=== PATIENT | male | born 1955 | race Caucasian/White ===

== ENCOUNTER 2019-05-25 08:46 | Emergency (ER) | payer BC, SELFPAY ==
--- NOTE | ~2019-05-25 | XR_ITS ---
EXAMINATION: XR finger 1st LT min 2V DATE: 05/25/2019 09:20 INDICATION: Left thumb interphalangeal joint infection. TECHNIQUE: 3 views of left thumb were obtained. COMPARISON: None. FINDINGS: Bone alignment is normal. No fracture. There is mild osteoarthritis of first carpometacarpa l joint. IMPRESSION: 1. No evidence of osteomyelitis. Reviewed, dictated and finalized at location A. MER MACHINE
[2019-05-25 09:05] VITALS: BP 145/72; PULSE 52; RESP 19; TEMP 36.4; O2SAT 100
--- NOTE | 2019-05-25 09:07 | ED.GENADULT ---
HPI - General Adult General Chief complaint: Wound/Laceration <ANAND Chou Last Filed: 05/25/19 11:17> Stated complaint: L THUMB INFECTION <ANAND Chou Last Filed: 05/25/19 11:17> Time Seen by Provider: 05/25/19 08:56 <ANAND Chou Last Filed: 05/25/19 11:17> Source: patient and family <ANAND Chou Last Filed: 05/25/19 11:17> Mode of arrival: ambulatory <ANAND Chou Last Filed: 05/25/19 11:17> Limitations: no limitations <ANAND Chou Last Filed: 05/25/19 11:17> History of Present Illness HPI narrative: Patient is a 64-year-old male who presents to emergency department noting infection of the left patient also started with a small pimple over the IP joint dorsal surface left thumb which has progressively worsened patient has had the infected area for 8 days now patient has been on clindamycin for 5 days with no improvement now has increased swelling with streaking up the arm. Patient notes moderate aching pain worse with activity and movement. Patient notes that he has difficulty with performing range of motion. <ANAND Chou Last Filed: 05/25/19 11:17> Related Data Home medications: Home Medications Medication Instructions Recorded Confirmed alirocumab 75 mg/mL subcutaneous 75 mg SUB-Q ONCE 03/23/19 03/23/19 pen injector amlodipine 10 mg tablet 10 mg PO DAILY 03/23/19 03/23/19 aspirin 81 mg tablet,delayed 81 mg PO DAILY 03/23/19 03/23/19 release carvedilol 25 mg tablet 25 mg PO Q12H 03/23/19 03/23/19 clopidogrel 75 mg tablet 75 mg PO DAILY 03/23/19 03/23/19 fenofibrate 160 mg tablet 160 mg PO DAILY 03/23/19 03/23/19 folic acid 1 mg tablet 1 mg PO DAILY 03/23/19 03/23/19 lansoprazole 30 mg capsule,delayed 30 mg PO DAILY 03/23/19 03/23/19 release nitroglycerin 0.4 mg sublingual 0.4 mg SUBLINGUAL Q5M PRN 03/23/19 03/23/19 tablet tamsulosin 0.4 mg capsule 0.4 mg PO DAILY 03/23/19 03/23/19 triamcinolone acetonide 0.5 % 1 applic TOPICAL BID 03/23/19 03/23/19 topical cream <Andres Gleason PA-C - Last Filed: 05/25/19 11:17> Allergies/adverse reactions: Allergies Allergy/AdvReac Type Severity Reaction Status Date / Time Penicillins Allergy Unknown Difficulty Verified 05/25/19 09:26 breathing <Andres Gleason PA-C - Last Filed: 05/25/19 11:17> Review of Systems Review of Systems: Narrative: SKIN: Positive for redness swelling and tenderness of the left thumb with streaking up the arm <Andres Gleason PA-C - Last Filed: 05/25/19 11:17> All systems reviewed & are unremarkable except as noted in HPI and below <Andres Gleason PA-C - Last Filed: 05/25/19 11:17> PMFSH Past Medical History Medical History: Medical History (Updated 05/25/19 @ 11:16 by Andres Gleason PA-C) Cellulitis of left hand Diabetes mellitus <Andres Gleason PA-C - Last Filed: 05/25/19 11:17> Family History Family History: Family History (Updated 08/19/18 @ 16:13 by DOCTOR UNKNOWN) Father Patient's father is , Onset Age: 77 Mother Acute myocardial infarction, Onset Age: 56 <Andres Gleason PA-C - Last Filed: 05/25/19 11:17> Social History Social History: Social History Smoking status: Never smoker Alcohol intake: never Gender identity (if verbalized by the patient): Male <Andres Gleason PA-C - Last Filed: 05/25/19 11:17> Exam Narrative: Exam Narrative: GENERAL: Well-appearing, well-nourished, and in no acute distress. HEAD: Normocephalic, atraumatic. EYES: PERRLA and EOMI. ENT: Nares clear, no rhinorrhea or epistaxis. Mucous membranes moist. CHEST: Clear to auscultation. No respiratory distress. No wheezes rales or rhonchi HEART: Regular rate and rhythm. No murmur heard. Normal peripheral pulses. EXTREMITIES: Red tender swollen area over
[2019-05-25 09:36] LABS: Basophils Percent Auto 0.5 % (0.2-1.2); Eosinophils Absolute Auto 0.1 K/mm3 (0-0.3); Eosinophils Percent Auto 3.5 % (0-4.4); Hematocrit 37.4 % (42.0-52.0); Hemoglobin 12.6 g/dL (14.0-18.0); Immature Granulocyte Absolute 0.02 K/mm3 (0.00-0.031); Immature Granulocyte Percent A 0.5 % (0-0.5); Lymphocytes Percent Auto 25.3 % (18.3-44.2); Mean Corpuscular HGB Conc 33.7 g/dl (32-36); Mean Corpuscular Hemoglobin 30.2 pg (26-34); Mean Corpuscular Volume 89.7 fl (80-100); Mean Platelet Volume 10.1 fl (7.4-10.4); Monocytes Absolute Auto 0.3 K/mm3 (0.1-0.6); Monocytes Percent Auto 7.6 % (2.6-8.5); Neutrophils Absolute Auto 2.5 K/mm3 (1.3-6.7); Neutrophils Percent Auto 62.6 % (45.5-73.1); Platelet Count Result 206 k/mm3 (150-375); Red Blood Count 4.17 M/mm3 (4.6-6.20)
[2019-05-25] MEDS: SODIUM CHLORIDE 0.9% IV 1,000 ML 999 ML IV CONT (09:39)
[2019-05-25 09:48] LABS: Blood Urea Nitrogen 19 mg/dL (9-20); Calcium 9.4 mg/dL (8.4-10.2); Carbon Dioxide 24 mmol/L (22-30); Chloride 103 mmol/L (98-107); Estimated Glomerular Filt Rate 47; Glucose 123 mg/dL (75-110); Potassium 4.2 mmol/L (3.4-5.0); Sodium 138 mmol/L (137-145)
[2019-05-25 10:21] LABS: CRP < 0.5 mg/dL (<1.0)
[2019-05-25 12:25] LABS: Erythrocyte Sedimentation Rate 23 mm/hr (0-20)
--- NOTE | 2019-05-31 14:06 | PC.NURSE ---
LATE ENTRY This note is being entered to document information to the patient's record. The following information was omitted on [05/25/2019], by [Wu Christian].NS stop time is 1040, Vancomycin stop time is 1035
== END 2019-05-25 11:36 | disposition home or self-care (01) ==
PROVIDERS: Emergency Medicine Emergency Medical Services; Emergency Provider Emergency Medicine; PCP Family Medicine
DX: L02.512 Cutaneous abscess of left hand (principal); E11.9 Type 2 diabetes mellitus without complications; Z79.82 Long term (current) use of aspirin
CPT/HCPCS: 26010; 36415; 73140; 80048; 85025; 85652; 86140; 87070; 87075; 87147; 87186; 87205; 96365; 96368; 99284; J0131; J3370; J7030

== ENCOUNTER 2020-11-20 18:42 | Observation (INO) | payer BC, SELFPAY ==
[2020-11-20] VITALS (29 sets, daily range): BP systolic 128–156; BP diastolic 69–92; PULSE 73–96; RESP 13–21; TEMP 36.4–37.1; O2SAT 95–98; BMI 33.5
--- NOTE | ~2020-11-20 | XR_ITS ---
EXAMINATION: XR chest 2V DATE: 11/20/2020 19:07 INDICATION: Midsternal chest pain. Shortness of breath. TECHNIQUE: Frontal and lateral views of the chest were obtained. COMPARISON: None. FINDINGS: The chest demonstrates clear lungs without pneumonia, pleural effusion, or pneumothorax. Th e heart size is normal. IMPRESSION: 1. No acute cardiopulmonary disease. Reviewed, dictated and finalized at location A.
--- NOTE | 2020-11-20 18:43 | ECG_ITS ---
Measurements Intervals [place] Rate: 87 P: MA: 0 QRS: -63 QRSD: 114 T: 38 QT: 348 QTc: 419 Interpretive Statements ATRIAL FIBRILLATION INCOMPLETE RIGHT BUNDLE BRANCH BLOCK LEFT ANTERIOR FASCICULAR BLOCK BASELINE ARTIFACT- I, II ABNORMAL ECG Electronically Signed On 11-20-2020 21:09:02 CDT by Pako Sanchez D.O.
[2020-11-20 19:04] LABS: Basophils Percent Auto 0.3 % (0.2-1.2); Eosinophils Absolute Auto 0.1 K/mm3 (0-0.3); Eosinophils Percent Auto 1.6 % (0-4.4); Hematocrit 38.2 % (42.0-52.0); Hemoglobin 12.5 g/dL (14.0-18.0); Immature Granulocyte Absolute 0.02 K/mm3 (0.00-0.031); Immature Granulocyte Percent A 0.3 % (0-0.5); Lymphocytes Absolute Auto 1.28 K/mm3 (0.9-3.2); Lymphocytes Percent Auto 17.3 % (18.3-44.2); Mean Corpuscular HGB Conc 32.7 g/dl (32-36); Mean Corpuscular Hemoglobin 28.7 pg (26-34); Mean Corpuscular Volume 87.8 fl (80-100); Monocytes Absolute Auto 0.5 K/mm3 (0.1-0.6); Monocytes Percent Auto 6.2 % (2.6-8.5); Neutrophils Absolute Auto 5.5 K/mm3 (1.3-6.7); Neutrophils Percent Auto 74.3 % (45.5-73.1); Platelet Count Result 254 k/mm3 (150-375); Red Blood Count 4.35 M/mm3 (4.6-6.20); Red Cell Distribution Width 13.2 % (11.5-14.5); White Blood Count 7.4 K/mm3 (4.5-10.0)
[2020-11-20 19:13] LABS: Prothrombin Time 13.3 Seconds (11.1-14.7)
[2020-11-20 19:14] LABS: Partial Thromboplastin Time 24.5 SECONDS (22.3-36.8)
[2020-11-20 19:15] LABS: Anion Gap 11 mmol/L (8-16); Blood Urea Nitrogen 33 mg/dL (9-20); Calcium 9.8 mg/dL (8.4-10.2); Carbon Dioxide 22 mmol/L (22-30); Chloride 107 mmol/L (98-107); Estimated Glomerular Filt Rate 30; Glucose 115 mg/dL (65-110); Potassium 4.2 mmol/L (3.4-5.0); Sodium 140 mmol/L (137-145)
[2020-11-20 19:26] LABS: Troponin I < 0.012 ng/mL (0.000-0.034)
[2020-11-20 21:59] LABS: Troponin I < 0.012 ng/mL (0.000-0.034)
--- NOTE | 2020-11-20 22:20 | ED.CHESTPAIN ---
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 Patient reported having occasional similar symptoms in the past few months. Currently patient is asymptomatic. History of hypertension, hyperlipidemia, hypothyroidism, anemia, coronary stents. Patient does not smoke or drink or uses drugs. Related Data Home Medications Medication Instructions Recorded Confirmed amlodipine 10 mg tablet 10 mg PO DAILY 03/23/19 11/16/20 aspirin 81 mg tablet,delayed 81 mg PO DAILY 03/23/19 11/16/20 release clopidogrel 75 mg tablet 75 mg PO DAILY 03/23/19 11/16/20 nitroglycerin 0.4 mg sublingual 0.4 mg SUBLINGUAL Q5M PRN 03/23/19 11/16/20 tablet triamcinolone acetonide 0.5 % 1 applic TOPICAL BID 03/23/19 11/16/20 topical cream alirocumab 75 mg/mL subcutaneous 75 mg SUB-Q . every 2 weeks ml 03/20/20 11/16/20 pen injector ferrous sulfate 325 mg (65 mg 325 mg PO DAILY 11/16/20 11/16/20 iron) tablet Allergies Allergy/AdvReac Type Severity Reaction Status Date / Time Penicillins Allergy Unknown Difficulty Verified 11/20/20 20:17 breathing Review of Systems Review of Systems: CONSTITUTIONAL: Denies fever, chills, or sweats. EYES: Denies visual changes, redness, or discharge. ENT: Denies rhinorrhea, congestion, sore throat, or otalgia. CARDIOVASCULAR: Denies chest pain, palpitations, or edema. RESPIRATORY: Denies cough or dyspnea. GASTROINTESTINAL: Denies abdominal pain, nausea, vomiting, or diarrhea. GENITOURINARY: Denies dysuria or hematuria. SKIN: Denies rash or itching. MUSCULOSKELETAL: Denies back pain, joint pain, or myalgia. NEUROLOGIC: Denies headache, numbness, or weakness. PSYCHIATRIC: Denies anxiety or depression. [facility] Past Medical History Medical History Acute sinusitis, unspecified BMI 34.0-34.9,adult BMI 36.0-36.9,adult Cellulitis Cellulitis of left hand Chronic kidney disease (CKD) stage G3b/A1, moderately decreased glomerular filtration rate (GFR) between 30-44 mL/min/1.73 square meter and albuminuria creatinine ratio less than 30 mg/g Chronic low back pain with left-sided sciatica Diabetes mellitus Encounter for prostate cancer screening Hypothyroidism, unspecified (10/25/20) elevated TSH at 5.68 on 10/25/2020 Male erectile dysfunction, unspecified Family History Family History Father Patient's father is , Onset Age: 77 Mother Acute myocardial infarction, Onset Age: 56 Social History Social History Smoking status: Never smoker Alcohol intake: never Gender identity (if verbalized by the patient): Male Exam Narrative: General appearance: Well-developed, well-nourished Skin: Normal color Head: Normocephalic, nontraumatic Eyes: Clear conjunctiva ENT: Oropharynx normal, ears normal, nose normal Neck: Supple, nontender Chest and respiratory: Airway patent, no respiratory distress, no accessory muscle use Heart: Regular irregularity Abdomen: Soft, nontender, no organomegaly, quiet bowel sounds Vascular: Normal peripheral pulses, normal capillary refill. Musculoskeletal: Normal range of motion, nontender back Neurologic: Alert and oriented ?3, LINOLEUM LAYER is normal as tested, no gross motor deficit
[2020-11-20] MEDS: ENOXAPARIN 100 MG/ML SYRINGE SUB-Q (23:07)
[2020-11-20] MEDS: ASPIRIN 81 MG CHEWABLE TABLET 324 MG PO (23:07)
--- NOTE | 2020-11-20 23:29 | ADMGEN ---
This patient, Jules Julien, was admitted to IMU Room 210-01 at 2329. Patient/family oriented to hospital policies and general routines including ID bracelet, bed and alarms, visiting hours, pain management, procedures, bathroom and other care routines, personal items, smoking policy, room service/diet, and visiting hours. Information on how to activate the Rapid Response Team has been discussed. Patient/Family are encouraged to report perceived risks to care and to ask questions if they do not understand what they are told or what they should do.
--- NOTE | 2020-11-20 23:42 | PM.IMHP ---
H&P: HPI History of Present Illness Date/Time: 11/20/20 23:42 Chief Complaint: chest pain and shortness of breath Narrative: Patient 65 years old white male who woke up early this morning with chest pain and shortness of breath around 4:00 a.m. it lasted for about 1 hour With spontaneous resolution. The patient also was feeling water-like feeling in the ear, try to call his family physician who advised him to go to the emergency room. Patient reported having occasional similar symptoms in the past few months. he presents to the ER as he was advised by his primary care to get evaluated in the ER. He is currently not exhibiting any of those symptoms. In the ER evaluation is noted to have atrial fibrillation which is a new diagnosis along with mild [place] I on chronic kidney disease with creatinine bumped up to 2.2 from baseline level of 1.5-1.7. He follows up regularly with his kidney doctor Dr. Bee. He has a history of hypertension, hyperlipidemia, hypothyroidism, anemia and coronary artery disease status post stents placed periods back. He was recently started on thyroid medication due to elevated TSH at 5.68 on 10/25/2020. Review of Systems Review of Systems: - CONSTITUTIONAL: Denies weight loss, fever and chills. - HEENT: Denies changes in vision and hearing - RESPIRATORY: Reports SOB and denies cough. - CV: Denies palpitations and reports CP. - GI: Denies abdominal pain, nausea, vomiting and diarrhea. - : Denies dysuria and urinary frequency. - MSK: Denies myalgia and joint pain. - SKIN: Denies rash and pruritus. - NEUROLOGICAL: Denies headache and syncope. - PSYCHIATRIC: Denies recent changes in mood. Denies anxiety and depression. All systems reviewed & are unremarkable except as noted in HPI and below PMFSH Past Medical History Medical History Acute sinusitis, unspecified BMI 34.0-34.9,adult BMI 36.0-36.9,adult Cellulitis Cellulitis of left hand Chronic kidney disease (CKD) stage G3b/A1, moderately decreased glomerular filtration rate (GFR) between 30-44 mL/min/1.73 square meter and albuminuria creatinine ratio less than 30 mg/g Chronic low back pain with left-sided sciatica Diabetes mellitus Encounter for prostate cancer screening Hypothyroidism, unspecified (10/25/20) elevated TSH at 5.68 on 10/25/2020 Male erectile dysfunction, unspecified Family History Family History Father Patient's father is , Onset Age: 77 Mother Acute myocardial infarction, Onset Age: 56 Social History Social History Smoking status: Never smoker Alcohol intake: never Substance use: never Gender identity (if verbalized by the patient): Male Spiritual care concerns: No Meds Home Medications and Allergies Home Medications Medication Instructions Recorded Confirmed Type amlodipine 10 mg tablet 10 mg PO DAILY 03/23/19 11/16/20 History aspirin 81 mg tablet,delayed 81 mg PO DAILY 03/23/19 11/16/20 History release nitroglycerin 0.4 mg sublingual 0.4 mg SUBLINGUAL Q5M PRN 03/23/19 11/16/20 History tablet folic acid 1 mg tablet 1 mg PO DAILY #90 tablet 12/01/19 11/16/20 Rx fenofibrate 160 mg tablet 160 mg PO DAILY #90 tablet 02/04/20 11/16/20 Rx tamsulosin 0.4 mg capsule 0.4 mg PO DAILY #90 cap 02/04/20 11/16/20 Rx alirocumab 75 mg/mL subcutaneous 75 mg SUB-Q . every 2 weeks ml 03/20/20 11/16/20 History pen injector lansoprazole 30 mg capsule,delayed 30 mg PO DAILY #90 cap 03/20/20 11/16/20 Rx release carvedilol 25 mg tablet 25 mg PO Q12H #360 tablet 03/31/20 11/16/20 Rx ferrous sulfate 325 mg (65 mg 325 mg PO DAILY 11/16/20 11/16/20 History iron) tablet levothyroxine 75 mcg tablet 75 mcg PO DAILY #30 tablet 11/16/20 11/16/20 Rx sildenafil 100 mg tablet 100 mg PO DAILY PRN #90 tablet 11/16/20 11/16/20 R
[2020-11-21] VITALS (9 sets, daily range): BP systolic 117–145; BP diastolic 71–81; PULSE 67–94; RESP 13–18; TEMP 36.4–36.6; O2SAT 98–99
[2020-11-21] MEDS: SODIUM CHLORIDE 0.9% IV 1,000 ML 125 ML IV CONT (00:23)
[2020-11-21 02:18] LABS: Troponin I < 0.012 ng/mL (0.000-0.034)
[2020-11-21 06:03] LABS: Basophils Percent Auto 0.6 % (0.2-1.2); Eosinophils Absolute Auto 0.1 K/mm3 (0-0.3); Eosinophils Percent Auto 2.5 % (0-4.4); Hematocrit 34.8 % (42.0-52.0); Hemoglobin 11.9 g/dL (14.0-18.0); Immature Granulocyte Absolute 0.02 K/mm3 (0.00-0.031); Immature Granulocyte Percent A 0.4 % (0-0.5); Lymphocytes Absolute Auto 1.81 K/mm3 (0.9-3.2); Lymphocytes Percent Auto 34.3 % (18.3-44.2); Mean Corpuscular HGB Conc 34.2 g/dl (32-36); Mean Corpuscular Hemoglobin 29.5 pg (26-34); Mean Corpuscular Volume 86.4 fl (80-100); Mean Platelet Volume 10.5 fl (7.4-10.4); Monocytes Absolute Auto 0.4 K/mm3 (0.1-0.6); Monocytes Percent Auto 7.4 % (2.6-8.5); Neutrophils Absolute Auto 2.9 K/mm3 (1.3-6.7); Neutrophils Percent Auto 54.8 % (45.5-73.1); Platelet Count Result 225 k/mm3 (150-375); Red Blood Count 4.03 M/mm3 (4.6-6.20); White Blood Count 5.3 K/mm3 (4.5-10.0)
[2020-11-21 06:25] LABS: Alanine Aminotransferase 17 U/L (4-50); Albumin Level 3.9 g/dL (3.5-5.1); Alkaline Phosphatase 34 U/L (38-126); Anion Gap 10 mmol/L (8-16); Aspartate Amino Transferase 20 U/L (17-59); Bilirubin,Total 0.3 mg/dL (0.2-1.3); Blood Urea Nitrogen 28 mg/dL (9-20); Calcium 9.4 mg/dL (8.4-10.2); Carbon Dioxide 23 mmol/L (22-30); Chloride 107 mmol/L (98-107); Estimated CRCL calculation 54 ml/min; Estimated Glomerular Filt Rate 41; Glucose 97 mg/dL (65-110); Potassium 3.7 mmol/L (3.4-5.0); Sodium 140 mmol/L (137-145)
[2020-11-21] MEDS: SODIUM CHLORIDE 0.9% IV 1,000 ML 100 ML IV CONT (08:39)
[2020-11-21] MEDS: FERROUS SULFATE 324 MG TABLET PO (08:44)
[2020-11-21] MEDS: ASPIRIN 81 MG ENTERIC TABLET PO (08:45)
[2020-11-21] MEDS: FOLIC ACID 1 MG TABLET PO (08:45)
[2020-11-21] MEDS: FENOFIBRATE 160 MG TABLET PO (08:45)
[2020-11-21] MEDS: amLODIPine BESYLATE 5 MG TABLET 10 MG PO (08:45)
[2020-11-21] MEDS: LANSOPRAZOLE ORAL SUSP 30 MG/10 ML ORAL.SUSP PO (08:45)
[2020-11-21] MEDS: TAMSULOSIN HCL 0.4 MG CAPSULE PO (08:45)
[2020-11-21] MEDS: carvediloL 25 MG TABLET PO (08:45)
--- NOTE | 2020-11-21 10:13 | PM.CNCAR ---
Assessment and Plan Assessment and plan (1) Atrial fibrillation: Onset Date: 11/20/20 Qualifiers: Atrial fibrillation type: unspecified Qualified Code(s): I48.91 - Unspecified atrial fibrillation Code(s): I48.91 - Unspecified atrial fibrillation Status: Acute Assessment and Plan: 65-year-old male with CAD, history of PCI/stenting x2 in May 2018 at [place], [place] ( intervention report not available); hypertension, DM, CKD, dyslipidemia, hypothyroidism on thyroxine replacement, erectile dysfunction . Patient presented to [facility] with complaints of palpitations, shortness of breath and chest pressure. He was found to be in atrial fibrillation with controlled ventricular response ( atrial fibrillation either paroxysmal or persistent). Patient denies any known diagnosis of atrial fibrillation. He has had palpitations for some time, per patient. Serial troponins are negative. Patient is currently chest pain-free. - Patient is currently in atrial fibrillation with controlled ventricular response, heart rates are in 60 to 70s. Continue rate control with carvedilol. Based on patient's CHADSVASc score, he would need anticoagulation for CVA prophylaxis. Patient gives history of anemia, however, denies any overt bleeding. Will initiate on apixaban 5 mg p.o. b.i.d. - No acute ST segment abnormalities are seen on the EKG. Serial troponins are negative. Patient is eager to be discharged home. 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 (2) CAD (coronary artery disease): Code(s): I25.10 - Atherosclerotic heart disease of [place] coronary artery without angina pectoris Status: Acute Assessment and Plan: ruled out for VT by serial negative cardiac biomarkers. Continue low-dose aspirin regimen could; beta-vilma, PCSK9 inhibitor. (3) Dyslipidemia: Code(s): E78.5 - Hyperlipidemia, unspecified Status: Acute Assessment and Plan: Patient is currently on PCSK9 inhibitor (4) ASHLEY (acute kidney injury): Code(s): N17.9 - Acute kidney failure, unspecified Status: Acute Assessment and Plan: patient has CKD, and was found to have creatinine of 2.2, baseline 1.74. His creatinine has improved back to 1.70. He follows up with a valver for management of his CKD. History of Present Illness History of Present Illness Consult date/time: 11/21/20 10:13 DATE OF CONSULT: 11/21/2020 REASON FOR CONSULT: atrial fibrillation REQUESTING PHYSICIAN:Emerson Patricio MD CHIEF COMPLAINT: Palpitations, chest pain, shortness of breath HPI: 65-year-old male with CAD, history of PCI/stenting x2 in May 2018 at [place], [place] ( intervention report not available); hypertension, DM, CKD, dyslipidemia, hypothyroidism on thyroxine replacement, erectile dysfunction. Patient presented to [facility] on 11/20/2020 with complaints of shortness of breath, palpitations or chest tightness. Patient states that he woke up yesterday morning with these symptoms that last for about an hour. During the day, he continued to have intermittent episodes of shortness of breath, tiredness and dizziness. He also felt fullness in his right ear . Patient states that he called his primary care physician's office,and was advised to come to the hospital . In the ER, EKG on presentation which I personally evaluated showed atrial fibrillation with controlled ventricular response, ventricular rate 87 beats per minute, incomplete right bundle branch block, left anterior fascicular block. serial troponins negative. Chest x-ray unremarkable. Recent TSH from 10/25/2020 was elevated at 5.68. Patient's creatinine was elevated at presentation at 2.2, baseline 1.74. Repeat labs have showed improvement in the creatinine level to 1.7. Patient gives history of CAD, and
--- NOTE | 2020-11-21 11:50 | PM.DS ---
DS: Admitting Diagnosis Admitting Diagnosis Chest pain and SOB DS: Discharge Diagnosis Discharge Diagnosis (1) Atrial fibrillation: Onset Date: 11/20/20 Qualifiers: Atrial fibrillation type: unspecified Qualified Code(s): I48.91 - Unspecified atrial fibrillation Code(s): I48.91 - Unspecified atrial fibrillation Status: Acute (2) ASHLEY (acute kidney injury): Code(s): N17.9 - Acute kidney failure, unspecified Status: Acute (3) Hypothyroidism, unspecified: Onset Date: 10/25/20 Code(s): E03.9 - Hypothyroidism, unspecified Status: Acute (4) Chronic low back pain with left-sided sciatica: Code(s): M54.42 - Lumbago with sciatica, left side; G89.29 - Other chronic pain Status: Acute (5) Chronic kidney disease (CKD) stage G3b/A1, moderately decreased glomerular filtration rate (GFR) between 30-44 mL/min/1.73 square meter and albuminuria creatinine ratio less than 30 mg/g: Code(s): N18.3 - Chronic kidney disease, stage 3 (moderate) Status: Acute (6) BPH without obstruction/lower urinary tract symptoms: Code(s): N40.0 - Benign prostatic hyperplasia without lower urinary tract symptoms Status: Acute (7) Coronary artery disease involving robinson coronary artery of robinson heart without angina pectoris: Code(s): I25.10 - Atherosclerotic heart disease of robinson coronary artery without angina pectoris Status: Acute (8) Essential (primary) hypertension: Code(s): I10 - Essential (primary) hypertension Status: Acute (9) Gastro-esophageal reflux disease without esophagitis: Code(s): K21.9 - Gastro-esophageal reflux disease without esophagitis Status: Acute (10) Psoriasis: Code(s): L40.9 - Psoriasis, unspecified Status: Acute DS: Summary Hospital Course Reason for hospitalization: 65yo male with CAD here for chest pain and SOB. Please see H&P for details Hospital Course: Patient woke up early (around 4AM) on the day of admission with chest pain and shortness of breath that lasted for about 1 hour before spontaneously resolving. He called his family physician who advised him to go to the ED. In the ED, EKG showing atrial fibrillation which is a new diagnosis along with mild ASHLEY with Cr at 2.2. he has CKD with baseline Cr 1.5-1.7. He was recently started on thyroid medication due to elevated TSH at 5.68 on 10/25/2020. Chest x-ray was clear. Troponin was negative x3. Patient had a TSH of 5.7 on 10/25/20 and he was started on Synthroid 75mcg daily which he started 4 days ago. TSH here was normal. Spoke with his PCP who said Synthroid was also given for weight loss and fatigue. Will stop Synthroid for now. He was continued on his Coreg. [id number] score was 3. He was given Lovenox and transitioned to Eliquis. He was seen by cardiology. Per Floral Clerk: Patient wants to follow up with his primary transcriber at [facility] for management of atrial fibrillation and CAD. Patient is eager for discharge. He denies CP or SOB. He denies hx of acute blood loss. He was educated about the risks and benefits of Eliquis. All questions answered. Patient is up walking in the room. He is stable for discharge Status at Discharge Cognitive/behavioral status at discharge: stable Time Spent with Patient Time attestation: Total time spent providing and/or coordinating discharge services: 32 minutes Time spent: Greater than 30 minutes Exam Narrative: AF 97.6 143/81 67 13 98%ra Gen - NARD Chest - CTA bilaterally, nml RR CV - irregularly irregular; Tele showing AFib with controlled rate Abd - Soft, NT/ND, Positive BS Ext - No pedal edema Psych - Nml mood and affect Skin - Warm and dry DS: Data Data Completed and Pending Labs on day of discharge: Labs from last 24 hours 11/21/20 11/21/20 11/21/20 04:54 04:54 01:05 WBC 5.3 RBC 4.03 L Hgb 11.9 L Hct 34.8 L MCV 86.4
== END 2020-11-21 15:36 | disposition home or self-care (01) ==
LOC: ANHED 22:47 → ANHIMU 11-21 12:07
PROVIDERS: Emergency Medicine; Admitting Provider Internal Medicine; Emergency Provider Emergency Medicine; PCP Family Medicine; Visit Provider Internal Medicine
DX: I48.91 Unspecified atrial fibrillation (principal); N17.9 Acute kidney failure, unspecified; R07.9 Chest pain, unspecified; E03.9 Hypothyroidism, unspecified; E11.22 Type 2 diabetes mellitus with diabetic chronic kidney disease; E78.5 Hyperlipidemia, unspecified; I25.10 Atherosclerotic heart disease of native coronary artery without angina pectoris; I12.9 Hypertensive chronic kidney disease with stage 1 through stage 4 chronic kidney disease, or unspecified chronic kidney disease; D50.9 Iron deficiency anemia, unspecified; G89.29 Other chronic pain; K21.9 Gastro-esophageal reflux disease without esophagitis; L40.9 Psoriasis, unspecified; M54.42 Lumbago with sciatica, left side; N18.32 Chronic kidney disease, stage 3b; N40.0 Benign prostatic hyperplasia without lower urinary tract symptoms; R06.02 Shortness of breath; Z95.5 Presence of coronary angioplasty implant and graft
CPT/HCPCS: 36415; 71046; 80048; 80053; 84443; 84484; 85025; 85610; 85730; 93005; 96360; 96361; 96372; 99285; A9270; G0378; J1650; J7030

== ENCOUNTER → 2020-12-18 00:16 | Outpatient (CLI) | payer BC, SELFPAY ==
[2020-12-18 23:32] LABS: SARS-CoV-2 RNA PCR Negative
== END ==
PROVIDERS: PCP Family Medicine
DX: R68.89 Other general symptoms and signs (principal); Z20.822 Contact with and (suspected) exposure to COVID-19
CPT/HCPCS: C9803; U0003; U0005

== ENCOUNTER 2024-12-17 01:17 | Day surgery (SDC) | payer BC, SELFPAY ==
[2024-12-13 14:48] VITALS: BMI 31.0
--- NOTE | 2024-12-13 15:08 | PC.NURSE ---
Spoke with patient regarding medication _eliquis_. _Patient_verbalizes understanding that the last dose is to be taken on _12/14/2024_ and the Endoscopist will instruct them when to restart after the procedure.
--- OUTSIDE RECORDS SUMMARY | 2024-12-17 01:21 | XMS_ITS | Patient Health Record ---
Author Organization [facility] Address [address] [place] [address] Care Team Providers Care Concrete Bucket Hooker Name Role Phone Wendy SHAFFER, Cj Unavailable Unavailable Reason For Referral No Information Plan Of Treatment No Information Insurance Providers Payer Name Payer Address Payer Phone Subscriber Number Group Number Insured Name Patient Relationship to Insured Coverage Start Date Coverage End Date [facility] [address] [place] [phone] [id number] Jules Julien Self - patient is the insured 1
--- OUTSIDE RECORDS SUMMARY | 2024-12-17 01:21 | XMS_ITS | Clinical Summary ---
Author Organization [facility] Katie bullock Address [address] [place] [id number] Phone Care Team Providers Care Technician Automatic Name Role Phone Guido Souza MD Primary Care Provider [phone] Allergies Active Allergy Reactions Criticality Noted Date Comments Penicillins 12/30/2018 Medications amLODIPine (NORVASC) 10 MG tablet Take 10 mg by mouth 2 (two) times a day Active olmesartan-hyd roCHLOROthiazi de (BENICAR HCT) 40-12.5 MG per tablet Take 1 tablet by mouth 1 (one) time each day Active fenofibrate (TRIGLIDE) 160 MG tablet Take 160 mg by mouth 1 (one) time each day Active metFORMIN (GLUCOPHAGE) 500 MG tablet Take 500 mg by mouth 1 (one) time each day Active lansoprazole (PREVACID) [address] capsule Take 30 mg by mouth 1 (one) time each day before breakfast Active tamsulosin (FLOMAX) 0.4 MG 24 hr capsule Take 0.4 mg by mouth 1 (one) time each day Active clopidogrel (PLAVIX) 75 MG tablet Take 75 mg by mouth 1 (one) time each day Active aspirin 81 MG tablet Take 81 mg by mouth 1 (one) time each day Active nitroglycerin (NITROSTAT) 0.[address] 0.4 mg under the tongue every 5 (five) minutes if needed for chest pain Active folic acid (FOLVITE) 1 MG tablet Take 1,000 mcg by mouth 1 (one) time each day 11 9 Active mupirocin (BACTROBAN) 2 % ointment APPLY 1 OINTMENT TOPICALLY TWICE DAILY 0 Active PRALUENT 150 MG/ML solution auto-injector INJECT 1 PEN (150MG) SUBCUTANEOUSLY EVERY 14 DAYS 0 Active ASPIRIN LOW DOSE 81 MG EC tablet 0 Active carvedilol (COREG) 25 MG tablet Take 25 mg by mouth every 12 (twelve) hours 0 Active Repatha SureClick 140 MG/ML solution auto-injector INJECT 140 MG SUBCUTANEOUSLY EVERY 14 DAYS 1 Active Eliquis 5 MG tablet TAKE 1 TABLET BY MOUTH BY MOUTH EVERY 12 HOURS 1 Active Euthyrox 75 MCG tablet Take 75 mcg by mouth 1 (one) time each day 1 Active sildenafil (VIAGRA) 100 MG tablet TAKE 1 TAB (100 MG) BY MOUTH NEEDED FOR SEXUAL ACTIVITY TAKE 30 MINUTES TO 4 HOURS BEFORE SEXUAL ACTIVITY 1 Active fluorouracil (EFUDEX) 5 % cream APPLY A THIN COAT TWICE DAILY TO FOREHEAD AND EARS FOR 3 WEEKS 2 Active mometasone (ELOCON) 0.1 % cream APPLY TOPICALLY TO RASH ON FACE TWICE DAILY FOR UP TO 2 WEEKS AT ATIME NEEDED FORPSORIASIS 2 Active Active Problems Problem Noted Date Diagnosed Date Diastolic dysfunction 01/30/2022 Myalgia caused by statin 01/30/2022 Palpitations 01/30/2022 Chronic kidney disease stage 3 12/02/2018 Iron deficiency 12/02/2018 Anemia of chronic disease 08/19/2018 Benign prostatic hyperplasia without lower urinary tract symptom 08/19/2018 Body mass index (BMI) 33.0-33.9, adult 9 Type 2 diabetes mellitus without complication Hypertension Gastroesophageal reflux disease Diabetes mellitus Hyperlipidemia Psoriasis Coronary arteriosclerosis Family History Medical History Relation Comments Diabetes Mother Diabetes Sister Relation Status Comments Mother Sister Social History Tobacco Use Types Packs/Day Years Used Date Smoking Tobacco: Never Smokeless Tobacco: Never Sex and Gender Information Value Date Recorded Sex Assigned at Not on file Legal Sex Male 2:31 PM MDT Gender Identity Not on file Sexual Orientation Not on file Last Filed Vital Signs Vital Sign Reading Time Taken Comments Blood Pressure 134/72 01/30/2022 3:52 PM CDT Pulse - - Temperature 36.9 C (98.4 F) 01/30/2022 3:52 PM CDT Respiratory Rate 18 01/30/2022 3:52 PM CDT Oxygen Saturation - - Inhaled Oxygen Concentration - - Weight 113 kg (249 lb) 01/30/2022 3:52 PM CDT Height 185.4 cm (6' 1) 01/30/2022 3:52 PM CDT Body Mass Index 32.85 01/30/2022 3:52 PM CDT Plan of Treatment Health Maintenance Due Date Last Done Comments Pneumococcal PPSV23/PCV13 65 + Years / Low and Medium Risk (1 of 2 - PCV) 2007 Influenza Vaccine (#1) 2024 Insurance Care Teams Technician Automatic Relationship Specialty Start Date End Date Guido Souza MD [address] [place] [address] [id number] PCP - General Internal Medicine 12/03/18
[2024-12-17 07:06] VITALS: BP 110/77; PULSE 80; RESP 16; TEMP 36.2; O2SAT 97; BMI 30.9
--- NOTE | 2024-12-17 07:08 | WPDANESEPPF ---
Anes - Initial Pre Proc Eval Procedure: Operation Date: 12/17/24 08:00 Proposed Procedures p Colonoscopy - Ruperto Gutierrez MD Date/Time: 12/17/24 07:08 Surgeon: Ruperto Gutierrez MD Pre Op Diagnosis: Other fecal abnormalities Patient Data Age: 69 Gender: M Height: 1.85 m Weight: 106.7 kg Allergies Allergy/AdvReac Type Severity Reaction Status Date / Time Penicillins Allergy Unknown Difficulty Verified 12/17/24 07:04 breathing Home Medications ?Medication ?Instructions ?Recorded ?Confirmed ?Type aspirin 81 mg tablet,delayed 81 mg PO DAILY 03/23/19 12/17/24 History release (Adult Low Dose Aspirin) sildenafil 100 mg tablet 100 mg PO DAILY PRN sexual 11/16/20 12/13/24 Rx activity #90 tabs apixaban 5 mg tablet (Eliquis) 5 mg PO Q12HR #60 tabs 11/21/20 12/17/24 Rx ferrous sulfate 325 mg (65 mg 325 mg PO BID 05/31/21 12/17/24 History iron) tablet mometasone 0.1 % topical cream 1 applic topical . b.i.d. PRN 11/28/21 12/13/24 Rx rash 2 weeks #45 grams fenofibrate 160 mg tablet 160 mg PO DAILY #90 tabs 02/09/24 12/17/24 Rx tamsulosin 0.4 mg capsule (Flomax) 0.4 mg PO DAILY #90 caps 02/09/24 12/17/24 Rx evolocumab 140 mg/mL subcutaneous 140 mg subcut .EVERY 14 DAYS 02/10/24 12/13/24 History pen injector (Repatha SureClick) lansoprazole 30 mg capsule,delayed 30 mg PO DAILY #90 caps 04/12/24 12/17/24 Rx release empagliflozin 25 mg tablet 25 mg PO QAM #90 tabs 04/27/24 12/17/24 Rx (Jardiance) nitroglycerin 0.4 mg sublingual 0.4 mg sublingual Q5M PRN Chest 06/02/24 12/13/24 Rx tablet Pain #100 tabs carvedilol 25 mg tablet 25 mg PO Q12H #360 tabs 07/19/24 12/17/24 Rx semaglutide 0.25 mg or 0.5 mg (2 0.5 mg (0.736 mL) subcut WEEKLY #3 09/08/24 12/13/24 Rx mg/3 mL) subcutaneous pen injector mL (Ozempic) amlodipine 10 mg tablet (Norvasc) 5 mg (1/2 x 10 mg) PO DAILY #90 10/11/24 12/13/24 Rx tabs folic acid 1 mg tablet 1 mg PO DAILY #90 tabs 11/01/24 12/17/24 Rx amlodipine 5 mg tablet 5 mg PO DAILY 12/13/24 12/17/24 History ascorbic acid (vitamin C) 1 tablet PO DAILY 12/13/24 12/17/24 History cholecalciferol (vitamin D3) 1 tablet PO DAILY 12/13/24 12/17/24 History fluticasone propionate 50 1 spray intranasal DAILY 12/13/24 12/17/24 History mcg/actuation nasal spray,suspension (Flonase Allergy Relief) vitamin b12 1 cap PO DAILY 12/13/24 12/17/24 History Patient hx anesthesia problems: none Family hx anesthesia problems: none Results Review: All pre-operative results and documents have been reviewed as part of the pre-operative evaluation. [facility] Past Medical History Medical History Positive colorectal cancer screening using Cologuard test Cologuard screening 09/05/2024 was positive. Referral for colonoscopy. Type 2 diabetes mellitus without complication, without long-term current use of insulin fasting glucose 120 with hemoglobin A1c 5.5 on 05/23/2021. Glucose 91 on 01/21/2022. glucose 137 with hemoglobin A1c 5.8 with microalbumin ratio of 6 on 05/29/2022. Glucose 140 with hemoglobin A1c 5.8 with urine microalbumin ratio of 9 on 06/20/2023. Fasting glucose 154 on 08/08/2023. At low risk for fall At moderate risk for fall (~05/2022) the patient fell once going down 2 steps in his garage when he was in a hurry. Seasonal allergic rhinitis Stage 3a chronic kidney disease Actinic keratosis b.i.d. 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 TSH 3.53 and free T4 1.2 on 05/23/2021.TSH 2.24 on 11/23/2021. resolved. Normal thyroid function. BMI 36.0-36.9,adult Acute sinusitis, unspecified Encounter for prostate cancer screening PSA testing is not covered by insurance 01/19/2024.PSA 1.73 on 11/23/2021. PSA 1.70 on 06/20/2023. PSA 1.77 on 07/30/2024. Chronic low back pain with left-sided sciatica Chronic kidney disease (CKD) stage G3b/A1, moderately decreased glomerular filtration rate (GFR) between 30-44 mL/min/1.73 square meter and albuminuria creatinine ratio less than 30 mg/g BUN 19 with creatinine 1.65 with GFR 43 on 05/23/2021 . BUN 25, creatinine 1.57 with GFR 46 on 07/25/2021. BUN 21 with creatinine 1.74 with GFR 43 on 11/23/2021. BUN 23 with creatinine 1.54 with GFR 50 01/21/2022. BUN 23, creatinine 1.62, GFR 47 on 05/29/2022. Cellulitis of left hand Surgical History Surgical History History of heart artery stent History of back surgery Family History Family History Father Patient's father is , Onset Age: 77 Heart disease Mother Acute myocardial infarction, Onset Age: 56 Diabetes mellitus Hypertension Sibling Cancer Diabetes mellitus Depression Grandparent Heart disease Social History Social History Smoking status: Never smoker Alcohol intake: never Substance use: never Lack of Transportation: No Lack of Food: Never True Current Housing: I Have Housing Concerned About Future Housing: No Difficulty Paying Gas/Electric Bills: No Difficulty Paying for Meds: No Currently Unemployed: No Education: Decline to Answer Difficulty w/ Childcare or Family Care: No Living arrangements: with family Occupation/Education: occupation Additional occupation/education comments: [employer] Gender identity (if verbalized by the patient): Male Sexual Orientation (if Verbalized by the Patient): Straight or Heterosexual Spiritual care concerns: No Agree to blood products: Yes Anes - Eval Final PreProcedure Day of Procedure 12/17/24 07:08 Patient weight: obese Heart: regular rate and rhythm Lungs: decreased breath sounds Airway: Mallampati scale class II Neurological: alert and oriented Last oral intake: >/= 8 hours ASA classification: III Emergent: no Anesthetic plan: proceed Anesthesia type and monitoring: general GIVS and standard monitoring Results Review: All pre-operative results and documents have been reviewed as part of the pre-operative evaluation. Informed Consent: The patient's anesthetic plan and its attendant risks and benefits were discussed with the patient/family/POA. Questions were solicited and answers provided to the satisfaction of the patient/family/POA.
[2024-12-17] MEDS: LACTATED RINGERS 1,000 ML 150 ML IV CONT (07:16)
--- NOTE | 2024-12-17 07:53 | PM.HPGS ---
History of Present Illness History of Present Illness Consent: Risks, benefits, and alternatives have been discussed and questions answered. Patient agrees to proceed with procedure. Chief complaint: Other fecal abnormalities Narrative: Jules Trotter is a 69 year old male here for colonoscopy because + cologuard Review of Systems Review of Systems: All systems reviewed & are unremarkable except as noted in HPI and below PMFSH Past Medical History Medical History Positive colorectal cancer screening using Cologuard test Cologuard screening 09/05/2024 was positive. Referral for colonoscopy. Type 2 diabetes mellitus without complication, without long-term current use of insulin fasting glucose 120 with hemoglobin A1c 5.5 on 05/23/2021. Glucose 91 on 01/21/2022. glucose 137 with hemoglobin A1c 5.8 with microalbumin ratio of 6 on 05/29/2022. Glucose 140 with hemoglobin A1c 5.8 with urine microalbumin ratio of 9 on 06/20/2023. Fasting glucose 154 on 08/08/2023. At low risk for fall At moderate risk for fall (~05/2022) the patient fell once going down 2 steps in his garage when he was in a hurry. Seasonal allergic rhinitis Stage 3a chronic kidney disease Actinic keratosis b.i.d. 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 TSH 3.53 and free T4 1.2 on 05/23/2021.TSH 2.24 on 11/23/2021. resolved. Normal thyroid function. BMI 36.0-36.9,adult Acute sinusitis, unspecified Encounter for prostate cancer screening PSA testing is not covered by insurance 01/19/2024.PSA 1.73 on 11/23/2021. PSA 1.70 on 06/20/2023. PSA 1.77 on 07/30/2024. Chronic low back pain with left-sided sciatica Chronic kidney disease (CKD) stage G3b/A1, moderately decreased glomerular filtration rate (GFR) between 30-44 mL/min/1.73 square meter and albuminuria creatinine ratio less than 30 mg/g BUN 19 with creatinine 1.65 with GFR 43 on 05/23/2021 . BUN 25, creatinine 1.57 with GFR 46 on 07/25/2021. BUN 21 with creatinine 1.74 with GFR 43 on 11/23/2021. BUN 23 with creatinine 1.54 with GFR 50 01/21/2022. BUN 23, creatinine 1.62, GFR 47 on 05/29/2022. Cellulitis of left hand Surgical History Surgical History History of heart artery stent History of back surgery Family History Family History Father Patient's father is , Onset Age: 77 Heart disease Mother Acute myocardial infarction, Onset Age: 56 Diabetes mellitus Hypertension Sibling Cancer Diabetes mellitus Depression Grandparent Heart disease Social History Social History Smoking status: Never smoker Alcohol intake: never Substance use: never Lack of Transportation: No Lack of Food: Never True Current Housing: I Have Housing Concerned About Future Housing: No Difficulty Paying Gas/Electric Bills: No Difficulty Paying for Meds: No Currently Unemployed: No Education: Decline to Answer Difficulty w/ Childcare or Family Care: No Living arrangements: with family Occupation/Education: occupation Additional occupation/education comments: [employer] Gender identity (if verbalized by the patient): Male Sexual Orientation (if Verbalized by the Patient): Straight or Heterosexual Spiritual care concerns: No Agree to blood products: Yes Meds Home Medications and Allergies Home Medications ?Medication ?Instructions ?Recorded ?Confirmed ?Type aspirin 81 mg tablet,delayed 81 mg PO DAILY 03/23/19 12/17/24 History release (Adult Low Dose Aspirin) sildenafil 100 mg tablet 100 mg PO DAILY PRN sexual 11/16/20 12/13/24 Rx activity #90 tabs apixaban 5 mg tablet (Eliquis) 5 mg PO Q12HR #60 tabs 11/21/20 12/17/24 Rx ferrous sulfate 325 mg (65 mg 325 mg PO BID 05/31/21 12/17/24 History iron) tablet mometasone 0.1 % topical cream 1 applic topical . b.i.d. PRN 11/28/21 12/13/24 Rx rash 2 weeks #45 grams fenofibrate 160 mg tablet 160 mg PO DAILY #90 tabs 02/09/24 12/17/24 Rx tamsulosin 0.4 mg capsule (Flomax) 0.4 mg PO DAILY #90 caps 02/09/24 12/17/24 Rx evolocumab 140 mg/mL subcutaneous 140 mg subcut .EVERY 14 DAYS 02/10/24 12/17/24 History pen injector (Repathelías Collazo) lansoprazole 30 mg capsule,delayed 30 mg PO DAILY #90 caps 04/12/24 12/17/24 Rx release empagliflozin 25 mg tablet 25 mg PO QAM #90 tabs 04/27/24 12/17/24 Rx (Jardiance) nitroglycerin 0.4 mg sublingual 0.4 mg sublingual Q5M PRN Chest 06/02/24 12/13/24 Rx tablet Pain #100 tabs carvedilol 25 mg tablet 25 mg PO Q12H #360 tabs 07/19/24 12/17/24 Rx semaglutide 0.25 mg or 0.5 mg (2 0.5 mg (0.736 mL) subcut WEEKLY #3 09/08/24 12/17/24 Rx mg/3 mL) subcutaneous pen injector mL (Ozempic) amlodipine 10 mg tablet (Norvasc) 5 mg (1/2 x 10 mg) PO DAILY #90 10/11/24 12/13/24 Rx tabs folic acid 1 mg tablet 1 mg PO DAILY #90 tabs 11/01/24 12/17/24 Rx amlodipine 5 mg tablet 5 mg PO DAILY 12/13/24 12/17/24 History ascorbic acid (vitamin C) 1 tablet PO DAILY 12/13/24 12/17/24 History cholecalciferol (vitamin D3) 1 tablet PO DAILY 12/13/24 12/17/24 History fluticasone propionate 50 1 spray intranasal DAILY 12/13/24 12/17/24 History mcg/actuation nasal spray,suspension (Flonase Allergy Relief) vitamin b12 1 cap PO DAILY 12/13/24 12/17/24 History Allergies Allergy/AdvReac Type Severity Reaction Status Date / Time Penicillins Allergy Unknown Difficulty Verified 12/17/24 07:04 breathing Vital Signs Vital Signs - 24 hr 12/17/24 07:06 Temperature 97.2 F L Pulse Rate 80 Respiratory Rate 16 Blood Pressure 110/77 Pulse Oximetry 97 Oxygen Delivery Room Air Exam Const: General: comfortable and no acute distress HENMT: Face/Nose/Sinus: Normal nares present Eyes: General: appearance normal, both eyes and all related structures Neck: Neck: no JVD Resp: Auscultation: clear to auscultation bilaterally Cardio: Rate: regular rate Rhythm: regular rhythm GI: Inspection: non-distended GI Palp: Yes Soft to palpation Skin: General skin exam: normal color Neuro: General: gait normal Speech: normal speech Extrem: General: normal to inspection Psych: Mental Status: mental status grossly normal Assessment and Plan Assessment and plan (1) Positive colorectal cancer screening using Cologuard test: Code(s): R19.5 - Other fecal abnormalities Status: Acute Assessment and Plan: colonoscopy
[2024-12-17 08:09] VITALS: BP 120/73; PULSE 88; RESP 26; O2SAT 97
--- NOTE | 2024-12-17 08:09 | S_PTH ---
PATIENT: Jules Trotter LOC: [facility] Li#:[id number] AGE/SX: 69/M ROOM: RE12/17/[address]: Ruperto Gutierrez MD : 1955 BED: DIS: 12/17/2024 SPEC #: [id number] RECD: 12/17/24 10:40 STATUS: BRI RETricia #: [id number] GEORGIE: 12/17/24 08:[address]: Ruperto Gutierrez DEPT: [facility] Surgical RECD BY: Mityz Branch ENTERED: 12/17/24 10:40 SP TYPE: Surgical OTHR DR: Guido Souza MD Tissues: A - Colon Polypectomy Procedures: Hematoxylin and Eosin Stain Gross and Microscopic Level 4
[2024-12-17 08:19] VITALS: BP 116/65; PULSE 81; RESP 18; O2SAT 99
[2024-12-17 08:29] VITALS: BP 129/86; PULSE 85; RESP 23; O2SAT 97
== END 2024-12-17 08:40 | disposition home or self-care (01) ==
PROVIDERS: PCP Family Medicine; Referring Provider Family Medicine; Visit Provider Internal Medicine Gastroenterology
PROC: 0DJD8ZZ Inspection of Lower Intestinal Tract, Via Natural or Artificial Opening Endoscopic (ICD-10-PCS; CPT 45378; principal; 2024-12-17 08:00)
DX: D12.3 Benign neoplasm of transverse colon (principal); K63.5 Polyp of colon; K64.8 Other hemorrhoids; E11.22 Type 2 diabetes mellitus with diabetic chronic kidney disease; I12.9 Hypertensive chronic kidney disease with stage 1 through stage 4 chronic kidney disease, or unspecified chronic kidney disease; N18.32 Chronic kidney disease, stage 3b; I11.0 Hypertensive heart disease with heart failure; I50.9 Heart failure, unspecified; J45.909 Unspecified asthma, uncomplicated; N52.9 Male erectile dysfunction, unspecified; E03.9 Hypothyroidism, unspecified; L57.0 Actinic keratosis; G89.29 Other chronic pain; M54.42 Lumbago with sciatica, left side; E66.9 Obesity, unspecified; Z68.30 Body mass index [BMI] 30.0-30.9, adult; Z79.82 Long term (current) use of aspirin; Z79.01 Long term (current) use of anticoagulants; Z79.85 Long-term (current) use of injectable non-insulin antidiabetic drugs; Z79.84 Long term (current) use of oral hypoglycemic drugs; Z98.1 Arthrodesis status; Z95.5 Presence of coronary angioplasty implant and graft; Z80.9 Family history of malignant neoplasm, unspecified; Z82.49 Family history of ischemic heart disease and other diseases of the circulatory system
CPT/HCPCS: 45385; 82948; 88305; J2704; J7120